=== PATIENT | male | born 1940 | race Caucasian/White ===

== ENCOUNTER 2018-01-28 09:37 | Emergency (ER) | payer OTHER ==
[~2018-01-28] VITALS: Ht 175.3 cm; Wt 73.9 kg
[2018-01-28 09:47] VITALS: BP 165/75; PULSE 58; RESP 16; TEMP 97.6; O2SAT 99
[2018-01-28] MEDS ORDERED: FLEC1TAB8 PO (10:20)
[2018-01-28] MEDS ORDERED: XARE20TA PO (10:20)
[2018-01-28] MEDS ORDERED: FISHCAP4 PO (10:20)
[2018-01-28] MEDS ORDERED: ZOCO40TA PO (10:20)
[2018-01-28] MEDS ORDERED: OMEP20TA93 PO (10:20)
[2018-01-28 10:40] LABS: BILIRUBIN, URINE NEG (NEG); BLOOD, URINE LARGE (NEG); GLUCOSE,URINE NEG (NEG); KETONE, URINE NEG (NEG); NITRITE,URINE NEG (NEG); PH, URINE 5.5 (5.0-8.5); URINE COLOR YELLOW (YELLW/STRAW); URINE LEUKOCYTE ESTERASE NEG (NEG)
--- NOTE | 2018-01-28 10:40 | PD ---
HPI Chief Complaint: Complaint Time Seen by Provider: 10:38 Travel History International Travel<30 days: No Contact w/Intl Traveler<30days: No Traveled to known affect area: No History of Present Illness HPI 78-year-old male patient with history of atrial fibrillation currently on Xarelto, presents to the ER today because he has had 3 days history of blood in his urine. He denies any abdominal pains, nausea, vomiting, fevers, or any other issues. He last took his Xarelto at 6 PM last night. He also has an history of BPH but otherwise denies any other urological issues. Modifying Factors: None Associated Signs & Symptoms: Blood in the urine for 3 days Risk Factors: Currently on Xarelto PFSH Past Medical History Hx Anticoagulant Therapy: Yes Atrial Fibrillation: Yes High Cholesterol: Yes Coronary Artery Disease: Yes GERD: Yes Hypertension: Yes Immunizations Current: Yes (SHINGLES) Influenza Vaccination: Yes Past Surgical History Surgical History: No Previous Surgery Social History Alcohol Use: No Tobacco Use: No Substance Use: No Allergies-Medications (Allergen,Severity, Reaction): Coded Allergies: No Known Allergies (Verified Allergy, Unknown, 01/28/18) Reported Meds & Prescriptions Reported Meds & Active Scripts Active Reported Zocor (Simvastatin) 40 Mg Tab 40 Mg PO DAILY Omeprazole 20 Mg Tab 20 Mg PO DAILY Fish Oil + D3 (Fish Oil-Cholecalciferol) 1,200-1,000 Mg-Unit Cap 1 Cap PO DAILY Flecainide (Flecainide Acetate) 50 Mg Tab 50 Mg PO BID Xarelto (Rivaroxaban) 20 Mg Tab 20 Mg PO DAILY Review of Systems Except as stated in HPI: all other systems reviewed are Neg Physical Exam Narrative GENERAL: Well-developed elderly white male patient currently and no acute distress. Awake and oriented 3. SKIN: Focused skin assessment warm/dry. HEAD: Atraumatic. Normocephalic. EYES: Pupils equal and round. No scleral icterus. No injection or drainage. ENT: No nasal bleeding or discharge. Mucous membranes pink and moist. NECK: Trachea midline. No JVD. CARDIOVASCULAR: Regular rate and rhythm. No murmur appreciated. RESPIRATORY: No accessory muscle use. Clear to auscultation. Breath sounds equal bilaterally. GASTROINTESTINAL: Abdomen soft, non-tender, nondistended. Hepatic and splenic margins not palpable. MUSCULOSKELETAL: No obvious deformities. No clubbing. No cyanosis. No edema. NEUROLOGICAL: Awake and alert. No obvious cranial nerve deficits. Motor grossly within normal limits. Normal speech. PSYCHIATRIC: Appropriate mood and affect; insight and judgment normal. Data Data Last Documented VS Vital Signs Date Time Temp Pulse Resp B/P (MAP) Pulse Ox O2 Delivery O2 Flow Rate FiO2 01/28/18 11:28 55 18 124/74 (91) 98 01/28/18 09:47 97.6 Orders Orders Urinalysis - C+S If Indicated (01/28/18 10:13) Complete Blood Count With Diff (01/28/18 10:38) Basic Metabolic Panel (Bmp) (01/28/18 10:38) Labs Laboratory Tests Test 01/28/18 10:30 01/28/18 10:51 Urine Collection Type CLEAN CATCH Urine Color YELLOW Urine Turbidity SL CLOUDY Urine pH 5.5 Urine Specific [place] 1.020 Urine Protein TRACE mg/dL Urine Glucose (UA) NEG mg/dL Urine Ketones NEG mg/dL Urine Occult Blood LARGE Urine Nitrite NEG Urine Bilirubin NEG Urine Urobilinogen 0.2 MG/DL Urine Leukocyte Esterase NEG Urine RBC 25-49 /hpf Urine WBC 9-14 /hpf Urine Squamous Epithelial Cells 0-5 /hpf Urine Bacteria FEW /hpf Microscopic Urinalysis Comment CULT NOT INDICATED White Blood Count 8.4 TH/MM3 Red Blood Count 4.00 MIL/MM3 Hemoglobin 12.5 GM/DL Hematocrit 36.6 % Mean Corpuscular Volume 91.4 FL Mean Corpuscular Hemoglobin 31.3 PG Mean Corpuscular Hemoglobin Concent 34.3 % Red Cell Distribution Width 13.7 % Platelet Count 134 TH/MM3 Mean Platelet Volume 7.9 FL Neutrophils (%) (Auto) 74.5 % Lymphocytes (%) (Auto) 14.5 % Monocytes (%) (Auto) 5.4 % Eosinophils (%) (Auto) 4.9 % Basophils (%) (Auto) 0.7 % Neutrophils # (Auto) 6.2 TH/MM3 Lymphocytes # (Auto) 1.2 TH/MM3 Monocytes # (Auto) 0.5 TH/MM3 Eosinophils # (Auto) 0.4 TH/MM3 Basophils # (Auto) 0.1 TH/MM3 CBC Comment DIFF FINAL Differential Comment Blood Urea Nitrogen 10 MG/DL Creatinine 0.78 MG/DL Random Glucose 95 MG/DL Calcium Level 8.4 MG/DL Sodium Level 140 MEQ/L Potassium Level 3.8 MEQ/L Chloride Level 106 MEQ/L Carbon Dioxide Level 28.3 MEQ/L Anion Gap 6 MEQ/L Estimat Glomerular Filtration Rate 96 ML/MIN MDM Medical Decision Making Medical Screen Exam Complete: Yes Emergency Medical Condition: Yes Medical Record Reviewed: Yes Interpretation(s) Laboratory Tests Test 01/28/18 10:30 01/28/18 10:51 Urine Occult Blood LARGE (NEG) Urine RBC 25-49 /hpf (0-3) Urine WBC 9-14 /hpf (0-5) Urine Bacteria FEW /hpf (NONE) Red Blood Count 4.00 MIL/MM3 (4.50-5.90) Hemoglobin 12.5 GM/DL (13.0-17.0) Hematocrit 36.6 % (39.0-51.0) Platelet Count 134 TH/MM3 (150-450) Neutrophils (%) (Auto) 74.5 % (16.0-70.0) Eosinophils (%) (Auto) 4.9 % (0.0-4.0) Calcium Level 8.4 MG/DL (8.5-10.1) Differential Diagnosis Blood in the urine: UTI versus hematuria Narrative Course UA is significant for UTI. My plan would be to start him on antibiotic for UTI. However, we have talked to the patient regarding the risks versus benefits of taking the Eliquis. At this point, I do not see any signs of gross hematuria, I do believe that his blood in the urine is secondary to the UTI and I plan to treat the UTI. I will have him talk to his primary care doctor today regarding continued use of Eliquis. He should return for any worsening and bleeding. The plan has been discussed with him and he states understanding. Diagnosis Primary Impression: UTI (urinary tract infection) Med/Other Pt SpecificInfo: Prescription(s) given, Med Stopped (Talk to your doctor about whether it will be beneficial to stop Eliquis for now and restart in a few days after UTI treatment) Scripts Nitrofurantoin Monohydrate Macrocrystals (Macrobid) 100 Mg Cap 100 MG PO BID for Infection for 7 Days, #14 CAP 0 Refills Prov: Charlie Horn MD 01/28/18 Disposition: 01 DISCHARGE HOME Condition: Stable Charlie Horn MD Jan 28, 2018 10:40
[2018-01-28 10:52] LABS: BACTERIA, URINE FEW /hpf; SQUAMOUS EPITHELIAL CELL URINE 0-5 /hpf (0-5)
[2018-01-28 10:56] LABS: AUTOMATED NEUTROPHIL # 6.2 TH/MM3 (1.8-7.7); BASOPHIL # 0.1 TH/MM3 (0-0.2); BASOPHIL % 0.7 % (0.0-2.0); EOSINOPHIL # 0.4 TH/MM3 (0-0.4); EOSINOPHIL % 4.9 % (0.0-4.0); HEMATOCRIT 36.6 % (39.0-51.0); HEMOGLOBIN 12.5 GM/DL (13.0-17.0); LYMPH % 14.5 % (9.0-44.0); LYMPHOCYTE # 1.2 TH/MM3 (1.0-4.8); MEAN CELL VOLUME 91.4 FL (80.0-100.0); MEAN CORPUSCULAR HEMOGLOBIN 31.3 PG (27.0-34.0); MEAN CORPUSCULAR HGB CONC 34.3 % (32.0-36.0); MEAN PLATELET VOLUME 7.9 FL (7.0-11.0); MONO % 5.4 % (0.0-8.0); MONOCYTE # 0.5 TH/MM3 (0-0.9); NEUT % 74.5 % (16.0-70.0); PLATELET COUNT 134 TH/MM3 (150-450); RED CELL DISTRIBUTION WIDTH 13.7 % (11.6-17.2); WHITE BLOOD COUNT 8.4 TH/MM3 (4.0-11.0)
[2018-01-28 11:08] LABS: CALCIUM 8.4 MG/DL (8.5-10.1)
[2018-01-28 11:09] LABS: BICARBONATE 28.3 MEQ/L (21.0-32.0)
[2018-01-28 11:12] LABS: CREATININE 0.78 MG/DL (0.60-1.30)
[2018-01-28 11:28] VITALS: BP 124/74; PULSE 55; RESP 18; O2SAT 98
[2018-01-28] MEDS ORDERED: MACR100C2 PO (11:31)
== END 2018-01-28 11:54 | disposition home or self-care (01) ==
LOC: PHED 09:37
DX: N39.0 Urinary tract infection, site not specified (principal); R31.9 Hematuria, unspecified; I48.91 Unspecified atrial fibrillation; I10 Essential (primary) hypertension; I25.10 Atherosclerotic heart disease of native coronary artery without angina pectoris; K21.9 Gastro-esophageal reflux disease without esophagitis; E78.00 Pure hypercholesterolemia, unspecified; Z79.01 Long term (current) use of anticoagulants
CPT/HCPCS: 80048; 81001; 85025; 99283